=== PATIENT | male | born 2000 | race Caucasian/White ===

== ENCOUNTER 2025-01-02 13:03 | Outpatient (AMB) | payer OTHER, SELFPAY ==
--- NOTE | 2025-01-02 13:05 | A.OFFVIS_ITS ---
Vital Signs 01/02/25 13:17 Height 5 ft 3 in Weight 132 lb 4.438 oz BMI 23.4 BP 110/58 L Blood Pressure Location Rt brachial Position Sitting Pulse 90 Pulse Source Pulse Oximeter Pulse Oximetry (%) 100 Oxygen Delivery Method Room Air Intake Visit Reasons: URGENT NEED Severe dysphagia and weight loss Intake Note: NEW PATIENT for Severe dysphagia and unintentional weight loss. Chief Complaint; Pt c/o a foreign body sensation in the throat with any intake, excessive saliva production, GERD sx, dysphagia, epigastric pain which primarily affects the RUQ. [place] [facility] [place] Pt has attempted soft foods, smaller portions per fork, liquid nutrition (ensure) etc, without any relief. Pt PCP estimates that the pt is losing approx. 1-2 lbs per day. Pt reports weighing almost 140 1 week ago. Pt denies any additional sx or concerns at this time. Clay Burner Required: No Accompanied by: Mother Allergies No Known Allergies Allergy (Verified 12/27/24 14:33) HPI HPI URGENT NEED Severe dysphagia and weight loss: Details: 24-year-old male with no significant past medical history is here today for initial consultation. Patient is accompanied by his mom. Patient is experiencing severe abdominal pain in the epigastric area almost all the time. Patient reports that when he is trying to eat anything he is experiencing some discomfort and feels like the food just does not want to go down. No actual choking episode or trouble swallowing, however patient is feels like the food wants to come back up. Patient reports weight loss over 30 lb in the last month or so. Patient reports weighing 140 lb week ago and today his weight is 132 lb. Patient's mom admits that he is not eating as he is afraid of the pain. Patient has not smoked marijuana for over a month. Patient does not drink any alcohol. Patient is trying to drink protein shakes. Mom believes that they are not lactose free. Started by PCP on pantoprazole, however he feels like it is not helping at all. Patient actually reports to be feeling worse. PCP send patient for barium swallow that showed normal esophageal peristalsis and motility, decrease gastric emptying as well as moderate reflux. Patient's mother reports that when patient was 6-month-old he had severe reflux and had to be on PPI as he had projectile vomiting and had to sit and sleep upright for few months. Before this episode patient reports to be feeling well and having no symptoms. Patient admits that over a month ago or so he had several 3 extracted and had to be on heavy dose antibiotics. Since then he has not felt right. Patient admits to taking ibuprofen for pain around the same time. Patient denies any hemoptysis, denies any melena, hematochezia. Reports that he is mo ving his bowels without any issues. Admits to abdominal bloating, however not related to meals. Patient really has not had any normal meal in the past 30 days. Patient is very anxious and very worry about his health at this time. Multiple visits to ER and urgent care. PCP note as well as ER visit notes reviewed prior to patient's arrival. No acute findings. Patient denies any fever or chills. [facility] Medical History Anxiety and depression Idiopathic myocarditis Abnormal barium swallow Ender-Chowdary infection Family History Paternal Grandfather Lung cancer Social History Alcohol intake: current Comment: ~ 2 / year. Primarily holidays. Patient Tobacco Use Status: Never used Tobacco Substance Use Type: Marijuana Review of Systems Const Denies weight gain and Denies weight loss ENT Reports no additional complaints, Reports dysphagia and Denies odynophagia Card Reports no additional complaints Resp Reports no additional complaints GI Reports abdominal pain (Epigastric, RUQ), Denies belching, Denies melena, Reports bloating, Denies change in bowel habits, Reports dysphagia, Denies excessive flatus, Reports dyspepsia, Reports heartburn, Denies diarrhea, Denies loose stools, Reports nausea, Denies odynophagia and Denies vomiting Reports no additional complaints Musc Reports no additional complaints Neuro Reports no additional complaints Psych Reports no additional complaints Endo Reports no additional complaints Physical Exam Vital Signs: Last Vital Signs Pulse 90 01/02/25 13:17 BP 110/58 L 01/02/25 13:17 Pulse Ox 100 01/02/25 13:17 Oxygen Delivery Method Room Air 01/02/25 13:17 BMI result Body Mass Index 23.4 Const General: healthy appearing and no acute distress Nutritional Appearance: well nourished Orientation/consciousness: patient oriented x3 Resp Effort & Inspection: normal respiratory effort, able to speak in complete sente nces, no tracheal deviation and symmetric chest movement Auscultation: clear to auscultation bilaterally Cardio Rate: regular rate GI Inspection: Yes normal to inspection and No distended Palpation (GI): Soft to palpation, not firm, nontender and No hepatosplenomegaly present Auscultation: normal bowel sounds General: Yes no CVA tenderness Back/Spine/Pelvis Back: no CVA tenderness Skin General skin exam: elasticity normal, turgor normal and dry skin Neuro General: patient oriented x3 Psych Appearance: grossly normal Mental Status: mental status grossly normal Affect: Anxious affect present Assessment & Plan Assessment & Plan (1) Abnormal barium swallow: Code(s): R93.3 - Abnormal findings on diagnostic imaging of other parts of digestive tract (2) Dysphagia: Code(s): R13.10 - Dysphagia, unspecified Qualifiers: Dysphagia type: pharyngoesophageal phase Qualified Code(s): R13.14 - Dysphagia, pharyngoesophageal phase (3) Postprandial epigastric pain: Code(s): R10.13 - Epigastric pain (4) RUQ abdominal pain: Code(s): R10.11 - Right upper quadrant pain (5) Nausea & vomiting: Code(s): R11.2 - Nausea with vomiting, unspecified Qualifiers: Vomiting type: unspecified Qualified Code(s): R11.2 - Nausea with vomiting, unspecified (6) Delayed gastric emptying: Code(s): K30 - Functional dyspepsia (7) GERD (gastroesophageal reflux disease): Code(s): K21.9 - Gastro-esophageal reflux disease without esophagitis Qualifiers: Esophagitis presence: esophagitis presence not specified Qualified Code(s): K21.9 - Gastro-esophageal reflux disease without esophagitis Plan Will change treatment to Nexium 40 mg daily. Patient will take sucralfate twice a day in the afternoon and at bedtime. Patient will switch protein shakes to lactose free. Will check CBC, thyroid study, vitamin D, RAST allergen CMP, vitamin B12 and folate, will rule out celiac and chronic pancreatitis. Will call patient with results. Patient was encouraged to eat small meals and more often. Patient will be scheduled to go for upper endoscopy. Message sent to surgical schedulers to book the procedure. Patient will follow-up with us after the procedure. He is agreeable to this plan and verbalizes understanding of instructions. He was given the opportunity to ask questions and all questions answered. Thank you for allowing me to participate in his care Orders: Orders Complete Blood Count no Diff 01/02/25 K21.9 - Gastro-esophageal reflux disease without esophagitis TSH reflex Free T4 01/02/25 K59.00 - Constipation, unspecified Vitamin D 25-OH (D2 and D3) 01/02/25 E55.9 - Vitamin D deficiency, unspecified Rast Allergen 01/02/25 K21.9 - Gastro-esophageal reflux disease without esophagitis Comprehensive Met. Panel 01/02/25 K21.9 - Gastro-esophageal reflux disease without esophagitis Vitamin B12 and Folate 01/02/25 R19.7 - Diarrhea, unspecified Lipase 01/02/25 R10.9 - Unspecified abdominal pain Transglutaminase IgA 01/02/25 R10.9 - Unspecified abdominal pain Medications: New famotidine 40 mg PO BEDTIME 30 tabs 0RF K21.9 - Gastro-esophageal reflux disease without esophagitis esomeprazole magnesium (Nexium) 40 mg PO DAILY 30 caps 5RF K21.9 - Gastro- esophageal reflux disease without esophagitis sucralfate 1 g PO BID 60 tabs 1RF R19.7 - Diarrhea, unspecified Coding Level of Care Code New Pt Level 4 (71214) Diagnoses Abnormal barium swallow R93.3 Pharyngoesophageal dysphagia R13.14 Dysphagia type: pharyngoesophageal phase Postprandial epigastric pain R10.13 RUQ abdominal pain R10.11 Nausea and vomiting, unspecified vomiting type R11.2 Vomiting type: unspecified Delayed gastric emptying K30 Gastroesophageal reflux disease, unspecified whether esophagitis present K21.9 Esophagitis presence: esophagitis presence not specified Time Spent (min) 50 Comment 35 minutes spent with patient and additional 15 minutes spent reviewing his records
[2025-01-02 13:17] VITALS: BP 110/58; PULSE 90; O2SAT 100; BMI 23.4
--- OUTSIDE RECORDS SUMMARY | 2025-01-02 14:25 | XMS_ITS | Encounter Summary ---
Author Organization [facility] Address [address] [place] [id number] Phone Care Team Providers Care Mixer Wet Pour Name Role Phone Naveed Rao MD Primary Care Provider [phone] Encounter Details Date Type Department Care Team (Late st Contact Info) Description 08/18/2011 Conversion Encounter [facility] [place] [address] [place] [id number] Social History Tobacco Use Types Packs/Day Years Used Date Smoking Tobacco: Never Assessed Sex and Gender Information Value Date Recorded Sex Assigned at Not on file Legal Sex Male 6:32 PM EDT Gender Identity Not on file Sexual Orientation Straight 06/26/2020 11 :36 AM EDT documented as of this encounter Plan of Treatment Not on file documented as of this encounter Visit Diagnoses Not on filedocumented in this encounter Care Teams Mixer Wet Pour Relationship Specialty Start Date End Date Naveed Rao MD [address] [place] [address] PCP - General 04/05/18 11/29/23 documented as of this encounter
--- OUTSIDE RECORDS SUMMARY | 2025-01-02 14:25 | XMS_ITS | Encounter Summary ---
Author Organization [facility] Address [address] [place] [phone] Phone Care Team Providers Care Photoresist Printer Name Role Phone Unavailable Primary Care Provider Unavailabl e Reason for Visit * Reason Onset Date Comments henry to new pcp 12/20/2024 Encounter Details Date Type Department Care Team (Late st Contact Info) Description 12/20/2024 Telephone [facility] [place] [address] [place] [address] [phone] Savanna Walsh MD [address] [place] [address] [phone] henry to new pcp Social History Tobacco Use Types Packs/Day Years Used Date Smoking Tobacco: Passive Smo ke Exposure - Never Smoker Smokeless Tobacco: Never Comments:Never Smoker Alcohol Use Standard Drinks/Week Comments Yes 0 (1 standard drink = 0.6 oz pur e alcohol) rarely w holidays Hunger/Food Answer Date Recorded In the last 12 months, did y ou or your family ever eat less than you felt you should because there wasn't enough money for food? No 02/08/2022 Stable Housing Answer Date Recorded Are you worried that in the next 2 months you may not have stable housing? No 02/08/2022 Transportation Concerns Answer Date Rec orded In the last 12 months, have you or your family ever had to go without healthcare because you didn't have a way to get there? No 02/08/2022 Hazards in Home Answer Date Recorded Think about the place you li ve. Do you have problems with any of the following? Pests (mice or roaches), mold, no/not working smoke detectors, water leaks, no window guards. No 2021 Financing Utilities Answer Date Recorde d In the last 12 months, has t he electric, gas, oil, or water company threatened to shut off your services in your home? No 02/08/2022 Safety at Home Answer Date Recorded Are you or your family worried about feeling saf e in your home? No 02/08/2022 Outside Support Answer Date Recorded Do you feel that you need mo re support from other people or programs to help you care for yourself or your family? No 02/08/2022 Understanding Health Concerns Answer Da te Recorded Do you need help understandi ng your or your child's healthcare needs (diagnosis, medications, plan, etc.)? No 02/08/2022 Financing Health Concerns Answer Date R ecorded In the last 12 months, was t here a time when your child needed to see a doctor or get medications or supplies but could not because of cost? No 02/08/2022 Missing School or Work Answer Date Kevin rded Did you or your child miss s chool or work because of a health problem that could have been avoided? No 02/08/2022 Sex and Gender Information Value Date Recorded Sex Assigned at Not on file Legal Sex Male 6:32 PM EDT Gender Identity Not on file Sexual Orientation Straight 06/26/2020 11 :36 AM EDT documented as of this encounter Miscellaneous Notes * Telephone Encounter - Nan Sweeney MA - 12/27/2024 6:28 PM EST Sent [email or web address] message about fee * Telephone Encounter - Maddi Bustillos - 12/23/2024 9:52 AM EST Please collect fee. Approved for processing. * Telephone Encounter - Koki Wadsworth - 12/20/2024 5:30 PM EST Henry to new pcp received via fax, scanned to media and placed in bin. Routing to [place]. documented in this encounter Plan of Treatment Not on file documented as of this encounter Visit Diagnoses Not on filedocumented in this encounter
--- OUTSIDE RECORDS SUMMARY | 2025-01-02 14:26 | XMS_ITS | Clinical Summary ---
Author Organization [address] Address [address] [place] [address] Phone Care Team Providers Care Ticket Attendant Name Role Phone Naveed Rao MD Primary Care Provider [phone] Allergies No known active allergies Medications No known medications Immunizations Name Administration Dates Next Due Influenza, injectable, quad, with preservative (6-35 mos) 09/11/2020 Social History Tobacco Use Types Packs/Day Years Used Date Smoking Tobacco: Never Smokeless Tobacco: Never Sex and Gender Information Value Date Recorded Sex Assigned at Not on file Legal Sex Male 2:37 PM EST Gender Identity Not on file Sexual Orientation Not on file Last Filed Vital Signs Vital Sign Reading Time Taken Comments Blood Pressure 117/71 10/04/2020 5:04 PM EST Pulse 88 10/04/2020 5:04 PM EST Temperature 37 ??C (98.6 ??F) 10/04/2020 2:41 PM EST Respiratory Rate 16 10/04/2020 2:41 PM EST Oxygen Saturation 97% 10/04/2020 5:04 PM EST Inhaled Oxygen Concentration - - Weight 75.3 kg (166 lb) 10/04/2020 2:45 PM EST Height 160 cm (5' 3 ) 10/04/2020 2:45 PM EST Body Mass Index 29.41 10/04/2020 2:45 PM EST Plan of Treatment Health Maintenance Due Date Last Done Comments DTaP/TDaP Vaccines (2 - Td or Tdap) 07/31/2013 07/03/2013 HIV screening 2015 Hepatitis C screening 2020 Tetanus adult (Td q 10,TDAP once) 07/03/2023 07/03/2013 Influenza vaccine 06/28/2024 09/11/2020, , 08/05/2015, Additional history exists Covid-19 vaccine series (2023-25 season) 2024 RSV Discussion (1 - 1-dose 75+ series) 2077 Hepatitis B vaccine series Completed 12/07, 2002, 2002 HIB Vaccines Completed 08/08/2003, 08/30, 2002, Additional history exists IPV Vaccines Completed 03/11/2006, 07/29, 2002, Additional history exists MMR Vaccines Completed 04/13/2007, 05/09/2003 Varicella Vaccines Completed 04/13/2007, 05/09/2003 HPV vaccine series Completed 08/05/2015, 1 12/04/2013, 08/02/2014 Hepatitis A Vaccines Completed 08/05/2015, 08/02/20 14 Meningococcal Vaccine Completed 05/14/2019, 013 Pneumococcal Vaccine Aged Out No long er eligible based on patient's age to complete this topic Rotavirus Vaccines Aged Out No longer eligible based on patient's age to complete this topic Insurance [place] [employer] [employer] Care Teams Ticket Attendant Relationship Specialty Start Date End Date Naveed Rao MD PCP - General Pediatrics 10/04/20
--- OUTSIDE RECORDS SUMMARY | 2025-01-02 14:26 | XMS_ITS | Clinical Summary ---
Author Organization [facility] Address [address] [place] [address] Phone Care Team Providers Care Community Health Consultant Name Role Phone Unavailable Primary Care Provider Unavailabl e Allergies No known active allergies Medications No known medications Active Problems Problem Noted Date Diagnosed Date Adjustment disorder with depressed mood 03/26/20 Assessment & Plan (03/26/2023 7:00 PM EDT): He was reluctant to admit but after conversation it is clear he carries overwhelming grief at times that greatly effects his life to this day after his older brother Randolph in 2016. 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 He agreed to a few visits to start to address kt Meyer, referral made and we discussed the importance moving forward in his life despite intense grief. I will talk kt Betsy greatly. Situational anxiety 03/26/2023 Assessment & Plan (03/26/2023 7:02 PM EDT): Needle sticks, blood work etc declines today. Discussed important of getting Tetanus vaccine in the next few months at local pharmacy. Counseling for transition fr om pediatric to adult care provider 03/26/2023 Chest pain 12/22/2022 Assessment & Plan (12/22/2022 6:51 PM EST): Uncertain cause but NEEDS to go back to ER for revaluation and POSSIBLY readmission. ELEVATED troponin x 2 in hospital over the last 48 hours is concerning. ?Myocarditis--not certain. He did go back to ER and I spoke w him 3-4 hours after office visit by phone, he is stable. Vitamin D insufficiency 02/12/2022 Marijuana dependence 02/12/2022 Assessment & Plan (03/26/2023 7:01 PM EDT): Using less, discussed in detail Assessment & Plan (12/22/2022 6:52 PM EST): Will need to work on this in the future at follow up. Assessment & Plan (02/12/2022 10:16 AM EDT): Discussed in detail-- Self medicating his behavioral concerns Discussed short and shelter ramifications and need to cut back and hopefully quit. Sleep disorder 01/23/2020 Overweight 11/07/2017 Overview (03/26/2019): Overweight (278.02) Onset: 11/07/2017 Added by: Naveed Rao Assessment & Plan (02/12/2022 10:12 AM EDT): Weight Management Recommendations: Weight: 162 lb (73.5 kg) GOAL Weight:Strive for 150 or so, discussed Working on healthier lifestyle and a bit more exercise Eating: ?? Work on appropriate portions-- (a portion is about the size of your child's fist). ?? Measure out food according to what the serving size actually is ?? Work on healthy low calorie snacks, including prior to meals to decrease intake at mealtime, especially dinner. ?? Work on implementing low calorie spacer food between first and second helpings. ?? Strive for five servings of fruits and vegetables per day Beverages: ?? Eliminate soda intake. ?? Limit juice and other sweetened drinks such as sports drinks (Gatorade) and energy drinks ?? Drink more water - preferably 3-4 glasses per day Physical activity: ?? Try to get at least one hour of physical activity per day - this can be all at once or broken into chunks ?? Keep screen time (tv, LearnVestTube/NetSmavaix, social media, video games) to a combined total of 2 hours or less per day Assessment & Plan (06/26/2020 11:33 AM EDT): Weight Management Recommendations: Weight: 166 lb 3.6 oz (75.4 kg) GOAL Weight:155# Eating: ?? Work on appropriate portions-- (a portion is about the size of your child's fist). ?? Measure out food according to what the serving size actually is ?? Work on healthy low calorie snacks, including prior to meals to decrease intake at mealtime, especially dinner. ?? Work on implementing low calorie spacer food between first and second helpings. ?? Strive for five servings of fruits and vegetables per day Beverages: ?? Eliminate soda intake. ?? Limit juice and other sweetened drinks such as sports drinks (Gatorade) and energy drinks ?? Drink more water - preferably 3-4 glasses per day Physical activity: ?? Try to get at least one hour of physical activity per day - this can be all at once or broken into chunks ?? Keep screen time (tv, LearnVestTube/NetSmavaix, social media, video games) to a combined total of 2 hours or less per day Resolved Problems Problem Noted Date Diagnosed Date Resolved Date Anxiety 12/22/2022 03/26/2023 Assessment & Plan (12/22/2022 6:49 PM EST): Chronic component and situational which triggered leaving from hospital yesterday AMA. We discussed that we will need to work on thsi but he refuses therapy. I reccommended that when he feels very anxious in ER./hospital to let them know and that it is ok to allow the hospital to use medications to help you in this situation This will need to be further addressed once we are certain heart condition is rectified. Weight loss 12/22/2022 03/26/2023 Assessment & Plan (12/22/2022 6:51 PM EST): Uncertain cause, need further evaluation--ER has run many tests. Abnormal intentional weight loss 12/16/2020 02/12/2022 Overview (12/17/2020): 16 lbs in last 15 days with mild improvement in activity and diet. + urinary frequency with negative ua. Negative Covid testing. Lab work ordered: normal HbA1c and cbc, ua-only abnormal for protein. Assessment & Plan (12/16/2020 7:06 PM EST): 16 lbs in last 15 days with mild improvement in activity and diet. + urinary frequency with negative ua. Negative Covid testing. Lab work ordered Will go do fasting lab work at [facility] tomorrow and f/u with Dr. Rao in 1-2 weeks. Adjustment disorder with mix ed anxiety and depressed mood 11/02/2017 03/26/2023 Overview (03/26/2019): Acute grief reaction (309.0) Onset: 11/02/2017 Added by: Naveed Rao Assessment & Plan (02/12/2022 10:11 AM EDT): Ongoing sadness from his brother's in MVA a few years ago. Advised counseling again, he will think about it. Tried fluoxetine last year, he didn't really take to any significant degree. Anxiety from his brother's in MVA makes it hard for him to learn how to drive- fearful Assessment & Plan (06/26/2020 11:15 AM EDT): START medication and discussed and prescribed, take medication(s) as directed and don't stop medication without consulting your provider START FLUOXETINE, 1/2 tablet daily in AM x 1 week then 1 whole tablet thereafter. Advise restarting counseling with therapist in the next month or so. Recheck w Dr. Rao in 3 weeks- please make this appointment EVEN IF YOU DON'T FEEL LIKE IT : ) DISCUSSED IN DETAIL, medications, possible side effects, black box warning ADVISE regular exercise, good sleep patterns, avoid drugs and alcohol CONTINUE counseling as discussed if appropriate CALL us if concerns of worsening symptoms CRISIS NUMBER SUICIDE PREVENTION HOTLINE NUMBER Text Hotline [id number] Short stature 07/03/2013 06/26/2020 Overview (03/26/2019): Short stature (783.43) Onset: 07/03/2013 Added by: Naveed Rao Encounters Date Type Department Care Team Description 12/20/2024 Telephone Pediatric [facility] - [address] [place] [address] Savanna Walsh MD henry to new pcp from Last 3 Months Immunizations Name Administration Dates Next Due DTaP 5 04/13/2007, 3,2002,07/19,2002 H1N1 10/03/2009 HPV, Quadrivalent 08/05/2015,10/04/2014,08/02/20 14 Hep A, ped/adol 08/05/2015,08/02/2014 Hep B, ped/adol 2002,2002,2002 Hib (PRP-T) 08/08/2003, 2,2002,05/17 IPV 03/11/2006, 3,2002,05/17 Influenza, injectable, MDCK, preservative free, quadrivalent 10/27/2021 Influenza, injectable, quadr ivalent, preservative free 08/09/2016,08/05/2015 Influenza, injectable, triva lent, preservative free 10/15/2008,10/03/2007,10/04/2006,11/08,10/04/2005 Influenza, intranasal, quadrivalent 10/04/2014 Influenza, intranasal, trivalent 08/25/2011 MMR 04/13/2007,05/09/2003 Meningococcal B Trumenba 01/10/2020,05/14/2019 Meningococcal Conj (Menactra) MCV4P 05/14/2019,0 07/03/2013 Pneumococcal Conjugate 08/08/2003,2001,2002,05/17 Tdap 07/03/2013 Varicella 04/13/2007,05/09/2003 Family History Medical History Relation Name Comments Diabetes Maternal Grandmother Heart disease (Premature) Maternal Grandmother Relation Name Status Comments Maternal Grandmother Social History Tobacco Use Types Packs/Day Years [...] t he electric, gas, oil, or water [employer] threatened to shut off your services in [...] Orientation Straight 06/26/2020 11 :36 AM EDT Last Filed Vital Signs Vital Sign Reading Time Taken Comments Blood Pressure 112/64 03/23/2023 2:06 PM EDT Pulse 82 03/23/2023 2:06 PM EDT Temperature 36.4 ??C (97.6 ??F) 03/23/2023 2:06 PM ED T Respiratory Rate 20 01/26/2023 1:19 PM EST Oxygen Saturation 98% 03/23/2023 2:06 PM EDT Inhaled Oxygen Concentration - - Weight 73.3 kg (161 lb 9.6 oz) 03/23/2023 2:06 P M EDT Height 157.7 cm (5' 2.09 ) 03/23/2023 2:06 PM ED T Body Mass Index 29.47 03/23/2023 2:06 PM EDT Plan of Treatment Health Maintenance Due Date Last Done Comments DTaP,Tdap,and Td Vaccines (7 - Td or Tdap) 07/03/2023 07/03/2013, 04/13/2007, 08/08/2003, Additional history exists Influenza Vaccines (#1) 2024 11/04/20, 10/27/2021, 08/09/2016, Additional history exists COVID-19 Vaccine (2023-2 5 season) 2024 01/11/2022, 01/23/2021, 12/26/2020 Hepatitis B Vaccines Completed 2002, 2002, 2002 HIB Vaccines Completed 08/08/2003, 08/30, 2002, Additional history exists Pneumococcal Vaccine Completed 08/08/2003, 2002, 2002, Additional history exists IPV Vaccines Completed 03/11/2006, 07/29, 2002, Additional history exists MMR Vaccines Completed 04/13/2007, 05/09/2003 Varicella Vaccines Completed 04/13/2007, 05/09/2003 HPV Vaccines Completed 08/05/2015, 11/0 05/2014, 08/02/2014 Hepatitis A Vaccines Completed 08/05/2015, 08/02/20 14 Meningococcal Vaccine Completed 05/14/2019, 013 Men B Vaccine Completed 01/10/2020, 05/14/2019 Insurance [facility] [place] [facility] [facility] Address: [address] [address] [place] [address] [employer]
== END 2025-01-02 15:24 | disposition home or self-care (01) ==
PROVIDERS: PCP Nurse Practitioner Family; Visit Provider Nurse Practitioner Family
DX: R93.3 Abnormal findings on diagnostic imaging of other parts of digestive tract (principal); R13.14 Dysphagia, pharyngoesophageal phase; R11.2 Nausea with vomiting, unspecified; K30 Functional dyspepsia; K21.9 Gastro-esophageal reflux disease without esophagitis
CPT/HCPCS: 99204

== ENCOUNTER 2025-01-02 13:03 | Outpatient (REF) | payer OTHER, SELFPAY ==
[2025-01-02 15:14] LABS: Hematocrit 42.7 % (42.0-52.0); Hemoglobin 15.5 g/dl (14.0-18.0); Mean Corpuscular HGB Conc 36.3 g/dl (31.0-36.0); Mean Corpuscular Hemoglobin 30.4 pg (27.0-33.0); Mean Corpuscular Volume 83.7 fL (80.0-98.0); Mean Platelet Volume 9.9 fL (9.4-12.4); Platelet Count 207 X10*3/uL (160-400); Red Cell Distribution Width 13.4 % (11.0-16.0); White Blood Count 4.4 X10*3/uL (4.8-10.8)
--- OUTSIDE RECORDS SUMMARY | 2025-01-02 15:47 | XMS_ITS | Clinical Summary ---
Author Organization [address] [place] [address] [place] [address] Phone Care Team Providers Care Rubber Engraver Name Role Phone Naveed Rao MD Primary Care Provider [phone] Allergies No known active allergies Medications No [...] [place] Care Teams Rubber Engraver Relationship Specialty Start Date End Date Naveed Rao MD PCP - General Pediatrics 10/04/20
--- OUTSIDE RECORDS SUMMARY | 2025-01-02 15:47 | XMS_ITS | Clinical Summary ---
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 Keep screen time (tv, OvulineTube/NetOmmvenix, social media, video games) to a combined [...] into chunks ?? Keep screen time (tv, OvulineTube/NetOmmvenix, social media, video games) to a combined [...] Will go do fasting lab work at [facility] tomorrow and f/u with Dr. Rao [...] NUMBER SUICIDE PREVENTION HOTLINE NUMBER Text Hotline [phone] Short stature 07/03/2013 06/26/2020 Overview (03/26/2019): Short stature (783.43) Onset: 07/03/2013 Added by: Naveed Rao Encounters Date Type Department Care Team Description 12/20/2024 Telephone Pediatric And Adolescent Medicine - [address] [place] [address] Savanna Walsh MD henry to new pcp [...] t he electric, gas, oil, or water [employer] threatened to shut off your services in [...] Men B Vaccine Completed 01/10/2020, 05/14/2019 Insurance [facility] Address: [address] [address] [place] [address] [employer]
--- OUTSIDE RECORDS SUMMARY | 2025-01-02 15:47 | XMS_ITS | Encounter Summary ---
Author Organization [facility] Address [address] [place] [phone] Phone Care Team Providers Care Programming Development Project Manager Name Role Phone Unavailable Primary Care Provider Unavailabl e Reason for Visit * Reason Onset Date Comments henry to new pcp 12/20/2024 Encounter Details Date Type Department Care Team (Late st Contact Info) Description 12/20/2024 Telephone [facility] - [place] [address] [place] [phone] Savanna Walsh MD [address] [place] [address] [phone] henry to new pcp Social History Tobacco [...] [place] - 12/27/2024 6:28 PM EST Sent wywy message about fee * Telephone Encounter - [...]
--- OUTSIDE RECORDS SUMMARY | 2025-01-02 15:47 | XMS_ITS | Encounter Summary ---
Author Organization [facility] Address [address] [place] [address] Phone Care Team Providers Care Addiction Specialist Name Role Phone Naveed Rao MD Primary Care Provider [phone] Encounter Details Date Type Department Care Team (Late st Contact Info) Description 08/18/2011 Conversion Encounter [facility] - [place] [address] [place] [phone] Social History Tobacco Use Types Packs/Day Years [...] on filedocumented in this encounter Care Teams Addiction Specialist Relationship Specialty Start Date End Date Naveed Rao MD [address] [place] [address] PCP - General 04/05/18 11/29/23 documented as of this encounter
[2025-01-02 16:09] LABS: Alanine Aminotransferase 28 U/L (0-40); Albumin Level 4.8 g/dL (3.5-5.0); Anion Gap 20 (12-20); Aspartate Amino Transferase 33 U/L (5-37); Bilirubin Total 1.5 mg/dL (0.0-1.0); Blood Urea Nitrogen 12 mg/dL (9-16); Calcium 10.2 mg/dL (8.4-10.2); Carbon Dioxide 22 mmol/L (22-29); Chloride 99 mmol/L (96-108); Estimated Glomerular Filt Rate > 60; Glucose Random 58 mg/dL (60-115); Lipase 19 U/L (8-78); Sodium 137 mmol/L (135-145); TSH reflex Free T4 0.75 uIU/mL (0.32-4.0)
[2025-01-02 16:17] LABS: Folate 9.1 ng/mL (> or = 4.0); Vitamin B12 749 pg/mL (200-900)
[2025-01-02 16:31] LABS: Alkaline Phosphatase 63 U/L (39-117)
[2025-01-04 14:53] LABS: Transglutaminase IgA <1.0 U/mL
[2025-01-06 17:47] LABS: Vitamin D 25-OH, D2 <4 ng/mL; Vitamin D 25-OH, D3 6 ng/mL; Vitamin D 25-OH, Total 6 ng/mL (30-100)
== END 2025-01-02 13:04 | disposition home or self-care (01) ==
LOC: HO.LAB 13:03
PROVIDERS: PCP Nurse Practitioner Family; Visit Provider Nurse Practitioner Family
DX: K21.9 Gastro-esophageal reflux disease without esophagitis (principal); R63.4 Abnormal weight loss; Z68.23 Body mass index [BMI] 23.0-23.9, adult; R93.3 Abnormal findings on diagnostic imaging of other parts of digestive tract; R13.14 Dysphagia, pharyngoesophageal phase; R10.11 Right upper quadrant pain; R11.2 Nausea with vomiting, unspecified; K30 Functional dyspepsia; E55.9 Vitamin D deficiency, unspecified; K59.00 Constipation, unspecified; R19.7 Diarrhea, unspecified
CPT/HCPCS: 36415; 80053; 82306; 82607; 82746; 83690; 84443; 85027; 86003; 86364

== ENCOUNTER 2025-01-17 08:22 | Day surgery (SDC) | payer OTHER, SELFPAY ==
[2025-01-17 09:04] VITALS: BMI 22.6
[2025-01-17] MEDS: Lactated Ringers 1,000 ML 80 ML IVCONT (09:17)
--- NOTE | 2025-01-17 09:49 | MHC.SHP ---
Pre-Procedural Eval Section A - 24 Hr Update-Section A only Date of Service: 01/17/25 The patient is an INPATIENT: No The patient has been examined within 24 hours of the surgical procedure. The History & Physical has been completed within 30 days and I have reviewed it.: Yes Section B - Complete if H&P > 30 days Chief Complaint: Dysphagia, unspecified Allergies: Allergies Allergy/AdvReac Type Severity Reaction Status Date / Time No Known Allergies Allergy Verified 01/17/25 09:40 Plan Diagnosis/Plan: Unchanged I have reviewed the history and physical and performed a pertinent physical examination on my patient. No changes have occurred unless specified. Time Spent With Patient Time: Total time managing care of this patient today ____ minutes.
[2025-01-17 10:09] VITALS: BP 123/71; PULSE 67; RESP 18; TEMP 36.7; O2SAT 100
--- NOTE | 2025-01-17 10:48 | P.CONAN_ITS ---
HPI - Anesthesia Eval Consult details Narrative: for upper endo PMFSH Past Medical History Medical History Anxiety and depression Idiopathic myocarditis Abnormal barium swallow Ender-Chowdary infection Family History Family History Paternal Grandfather Lung cancer Family history of problems with anesthesia: No Surgical History Surgical History Hx of wisdom tooth extraction History of Problems with Anesthesia: No Social History Social History Are you a primary early breastfeeding care specialist to a significant other at home: No Do you presently have visiting nurse or other home services: No Alcohol intake: current Comment: ~ 2 / year. Primarily holidays. Patient Tobacco Use Status: Never used Tobacco Substance Use Type: Marijuana Substance Use Frequency: Socially Have you been hit, kicked, punched, or otherwise hurt by someone within the past year? If so, by whom?: No Are you DNR?: No Advance Directives: No Advance Directives Information Provided: Yes Recently lost weight without trying: Yes How much weight loss: 14-23 pounds Eating poorly because of decreased appetite: Yes Nutrition screen score: 5 Poor oral hygiene: No Meds Allergies Allergy/AdvReac Type Severity Reaction Status Date / Time No Known Allergies Allergy Verified 01/17/25 09:40 Active Medications: Current Medications Lactated Ringer's (Lr) 1,000 mls @ 80 mls/hr IVCONT .[id number] [facility] Last Admin: 01/17/25 09:17 Dose: 80 mls/hr Home Medications ?Medication ?Instructions ?Recorded ?Confirmed ?Last Taken ?Type pantoprazole 40 mg tablet,delayed 40 mg PO DAILY 01/17/25 01/17/25 01/17/25 History release Exam Height,Weight and Vital Signs: Height 5 ft 3 in Weight 58 kg Last Vital Signs Temp 98.0 F 01/17/25 10:09 Pulse 67 01/17/25 10:09 Resp 18 01/17/25 10:09 BP 123/71 01/17/25 10:09 Pulse Ox 100 01/17/25 10:09 O2 Del Method Room Air 01/17/25 10:09 Airway Mallampati Class: II TM Dist: >3cm Neck ROM: Full Heart: rrr Lungs: cta Assessment and Plan Assessment Anesthesia Assessment: Anesthesia Plan Discussed and Chart Reviewed Final Anesthetic Review Family History of Problems with Anesthesia: No History of Problems with Anesthesia: No NPO: Yes ASA Class: II Final Preanesthetic Review: No Changes in Pt Med Stat, Meds/Allgs Chart Reviewed, Consent Obtained/Reviewed and Anes Risks/Benef Reviewed Patient Risk: Intermediate Procedure Risk: Low Anesthetic Plan Anesthetic Plan: MAC: Disposition: Standard PACU
--- NOTE | 2025-01-17 11:16 | P.OP_ITS ---
Operative Note Operative Note Date of Service: 01/17/25 Narrative: Procedure: Esophagogastroduodenoscopy Endoscopist: Sally Bruno MD Indication: Dysphagia, reflux Anesthesia Provider: Dr Kaitlynn Shook Anesthesia Type: MAC ?? EGD Procedure:?? The procedure, indications, preparation and potential complications were reviewed with the patient, who indicated understanding and gave written informed consent to proceed. A physical exam was performed. The endoscope was introduced through the mouth, and advanced to the second part of duodenum. The mucosa was carefully examined on slow withdrawal of the endoscope. The patient tolerated the procedure well. There were no immediate complications.? ? EGD Findings:? * Esophagus:? Normal mucosa noted in the entire esophagus. The Z line was at 39 and irregular to 38 cm. Cold forceps biopsies were taken from the GE junctional Barretts esophagus. Middle and lower esophagus forceps biopsies were obtained to rule out eosinophilic esophagitis. * Stomach:? A few erosions with erythema and scant heme were noted in the antrum, as well as body. Retroflexion was performed in the cardia. Random cold forceps gastric biopsies were taken to rule out H Pylori infection. * Duodenum:? Normal mucosa was noted in the whole of the examined duodenum. Cold forceps biopsies were taken from duodenal bulb and second portion of the duodenum to rule out celiac sprue. Additional intervention: Soft tipped Savary wire was introduced through the biopsy channel of the gastroscope and advanced to the antrum. ?The gastroscope was then backed out. ?Savary Zoila bougie was advanced over the guidewire and the esophagus was dilated to 20 with slight resistance felt. ?On relook, small superficial tear was noted at 20 cm confirming successful dilation. ? ? EGD Impressions:? * Cricopharyngeal stenosis (dilation) * Irregular Z line (biopsy) * Gastritis (biopsy) * Normal duodenum (biopsy) ?? Recommendations:?? * Follow biopsy results. Our office will call or send a letter with results within 7-10 days. * If biopsies confirm Dunn's esophagus, consider referral to for foregut surgery for consideration of anti-reflux surgery. * Continue PPI therapy. * If H pylori +, patient will be prescribed eradication therapy followed by test of cure. * Avoid NSAIDs.
[2025-01-17 11:24] VITALS: BP 93/50; PULSE 65; RESP 14; TEMP 36.4; O2SAT 99
[2025-01-17 11:39] VITALS: BP 95/54; PULSE 61; RESP 16; O2SAT 97
[2025-01-17 11:54] VITALS: BP 102/74; PULSE 72; RESP 20; TEMP 36.2; O2SAT 100
== END 2025-01-17 12:31 | disposition home or self-care (01) ==
PROVIDERS: PCP Nurse Practitioner Family; Visit Provider Internal Medicine
PROC: 0DJ08ZZ Inspection of Upper Intestinal Tract, Via Natural or Artificial Opening Endoscopic (ICD-10-PCS; CPT 43235; principal; 2025-01-17 10:50)
DX: K29.70 Gastritis, unspecified, without bleeding (principal); K22.9 Disease of esophagus, unspecified; J39.2 Other diseases of pharynx; K21.9 Gastro-esophageal reflux disease without esophagitis; F12.90 Cannabis use, unspecified, uncomplicated
CPT/HCPCS: 43248; 43239; 88305; 88313; 88342; C1769; J2003; J2250; J2704

== ENCOUNTER → 2025-01-17 08:22 | Outpatient (BNV) | payer OTHER, SELFPAY | PROVIDERS: PCP Nurse Practitioner Family; Visit Provider Internal Medicine | DX: R13.10 Dysphagia, unspecified (principal); K21.9 Gastro-esophageal reflux disease without esophagitis; J39.2 Other diseases of pharynx; K29.70 Gastritis, unspecified, without bleeding | CPT/HCPCS: 43239; 43248 ==

== ENCOUNTER 2025-02-15 10:40 | Outpatient (AMB) | payer OTHER, SELFPAY ==
--- NOTE | 2025-02-15 10:43 | A.OFFVIS_ITS ---
Vital Signs 02/15/25 10:48 Height 5 ft 3 in Weight 140 lb 10.479 oz BMI 24.9 BP 100/52 L Blood Pressure Location Rt brachial Position Sitting Pulse 78 Pulse Source Pulse Oximeter Pulse Oximetry (%) 98 Oxygen Delivery Method Room Air Intake Visit Reasons: s/p EGD + 3 mos GERD FUV Intake Note: ESTABLISHED PATIENT for s/p FUV, GERD + Dysphagia mgmt. Chief Complaint; C/O mild persistence with reflux + dysphagia, however improved. Pt also reports mild lack of appetite. However, overall improvement, diet remains unchanged, no signs of fecal abn at this time. Podiatric Technician Required: No Accompanied by: Parent Allergies No Known Allergies Allergy (Verified 01/17/25 09:40) HPI HPI s/p EGD + 3 mos GERD FUV: Details: LAST VISIT Abnormal barium swallow Dysphagia Postprandial epigastric pain RUQ abdominal pain Nausea & vomiting Delayed gastric emptying GERD (gastroesophageal reflux disease) Plan Will change treatment to Nexium 40 mg daily. Patient will take sucralfate twice a day in the afternoon and at bedtime. Patient will switch protein shakes to lactose free. Will check CBC, thyroid study, vitamin D, RAST allergen CMP, vitamin B12 and folate, will rule out celiac and chronic pancreatitis. Will call patient with results. Patient was encouraged to eat small meals and more often. Patient will be scheduled to go for upper endoscopy. Message sent to surgical jody arias to book the procedure. Patient will follow-up with us after the procedure. He is agreeable to this plan and verbalizes understanding of instructions. He was given the opportunity to ask questions and all questions answered. ? Thank you for allowing me to participate in his care Orders Orders Complete Blood Count no Diff 01/02/25 K21.9 TSH reflex Free T4 01/02/25 K59.00 Vitamin D 25-OH (D2 and D3) 01/02/25 E55.9 Rast Allergen 01/02/25 K21.9 Comprehensive Met. Panel 01/02/25 K21.9 Vitamin B12 and Folate 01/02/25 R19.7 Lipase 01/02/25 R10.9 Transglutaminase IgA 01/02/25 R10.9 Medications New famotidine 40 mg PO BEDTIME 30 tabs 0RF K21.9 esomeprazole magnesium (Nexium) 40 mg PO DAILY 30 caps 5RF K21.9 sucralfate 1 g PO BID 60 tabs 1RF R19.7 ENDOSCOPY EGD Findings:? * Esophagus:? Normal mucosa noted in the entire esophagus. The Z line was at 39 and irregular to 38 cm. Cold forceps biopsies were taken from the GE junctional Barretts esophagus. Middle and lower esophagus forceps biopsies were obtained to rule out eosinophilic esophagitis. * Stomach:? A few erosions with erythema and scant heme were noted in the antrum, as well as body. Retroflexion was performed in the cardia. Random cold forceps gastric biopsies were taken to rule out H Pylori infection. * Duodenum:? Normal mucosa was noted in the whole of the examined duodenum. Cold forceps biopsies were taken from duodenal bulb and second portion of the duodenum to rule out celiac sprue. Additional intervention: Soft tipped Savary wire was introduced through the biopsy channel of the gastroscope and advanced to the antrum. ?The gastroscope was then backed out. ?Savary Zoila bougie was advanced over the guidewire and the esophagus was dilated to 20 with slight resistance felt. ?On relook, small superficial tear was noted at 20 cm confirming successful dilation. ? ? EGD Impressions:? * Cricopharyngeal stenosis (dilation) * Irregular Z line (biopsy) * Gastritis (biopsy) * Normal duodenum (biopsy)?? Recommendations:?? * Follow biopsy results. Our office will call or send a letter with results within 7-10 days. * If biopsies confirm Dunn's esophagus, consider referral to for foregut surgery for consideration of anti-reflux surgery. * Continue PPI therapy. * If H pylori +, patient will be prescribed eradication therapy followed by test of cure. * Avoid NSAIDs. PATHOLOGY RESULTS Diagnosis A. Duodenum, biopsy: Duodenal mucosa within normal limits. B. Stomach, random, biopsy: Antral-type and oxyntic mucosa with mild chronic inactive inflammation and focal erosion and intestinal metaplasia in the antrum; negative for dysplasia; no Helicobacter organisms seen. C. Esophagus, lower, biopsy: - Cardiofundic-type mucosa with mild chronic inactive inflammation; no intestinal metaplasia seen. - Squamous epithelium within normal limits. D. Esophagus, mid, biopsy: Squamous epithelium within normal limits; no inflammation seen. E. GE junction, biopsy: - Cardiac-type mucosa with moderate chronic active inflammation; no intestinal metaplasia seen. - Squamous epithelium within normal limits. TODAY'S VISIT Patient is here today for follow-up. Patient accompanied by mom. Patient reports that since last visit he has been doing well. Upper endoscopy done, ruled out Dunn's and H pylori. Mild gastritis. Patient reports that he is taking pantoprazole in the morning and sucralfate at bedtime. States that his symptoms are suppressed for the most part. Patient has been eating simple meals and avoiding dietary triggers. Patient gained 8 lb since last visit. Patient's mom reports that patient kind of eats the same thing as he is afraid to try something new so he does not the symptoms. Still has symptoms of increased saliva at times. Denies dyspepsia, dysphagia or odynophagia. Patient reports normal bowel movements. We have ruled out chronic pancreatitis, celiac. Patient had very low vitamin-D level and we started him on high dose vitamin-D weekly. Patient reports that he has been taking that in feeling better. Patient in his mom reports that he feels like he has little bit more energy. [facility] Medical History Anxiety and depression Idiopathic myocarditis Abnormal barium swallow Ender-Chowdary infection Surgical History History of endoscopy Hx of wisdom tooth extraction Family History Paternal Grandfather Lung cancer Social History Are you a primary foster care worker to a significant other at home: No Do you presently have visiting nurse or other home services: No Alcohol intake: current Comment: ~ 2 / year. Primarily holidays. Patient Tobacco Use Status: Never used Tobacco Substance Use Type: Marijuana Review of Systems Const Denies weight gain and Denies weight loss ENT Reports no additional complaints, Denies dysphagia and Denies odynophagia Card Reports no additional complaints Resp Reports no additional complaints GI Denies abdominal pain, Denies belching, Denies melena, Denies bloating, Denies change in bowel habits, Denies dysphagia, Denies excessive flatus, Denies dyspepsia, Denies heartburn, Denies diarrhea, Denies loose stools, Denies nausea, Denies odynophagia and Denies vomiting Reports no additional complaints Musc Reports no additional complaints Neuro Reports no additional complaints Psych Reports no additional complaints Endo Reports no additional complaints Physical Exam Vital Signs: Last Vital Signs Pulse 78 02/15/25 10:48 BP 100/52 L 02/15/25 10:48 Pulse Ox 98 02/15/25 10:48 Oxygen Delivery Method Room Air 02/15/25 10:48 BMI result Body Mass Index 24.9 Const General: healthy appearing and no acute distress Nutritional Appearance: well nourished Orientation/consciousness: patient oriented x3 Resp Effort & Inspection: normal respiratory effort, able to speak in complete sentences, no tracheal deviation and symmetric chest movement Auscultation: clear to auscultation bilaterally Cardio Rate: regular rate GI Inspection: Yes normal to inspection and No distended Palpation (GI): Soft to palpation, not firm, nontender and No hepatosplenomegaly present Auscultation: normal bowel sounds General: Yes no CVA tenderness Back/Spine/Pelvis Back: no CVA tenderness Skin General skin exam: elasticity normal, turgor normal and dry skin Neuro General: patient oriented x3 Psych Appearance: grossly normal Mental Status: mental status grossly normal Affect: Anxious affect present Results Reviewed Results Reviewed: Laboratory Tests 01/02/25 15:01 AST 33 ALT 28 Lipase 19 Vitamin B12 749 25-OH Vitamin D Total 6 L Folate 9.1 TSH 0.75 Tiss Transglutamin IgA <1.0 Assessment & Plan Assessment & Plan (1) Abnormal barium swallow: Code(s): R93.3 - Abnormal findings on diagnostic imaging of other parts of digestive tract (2) Dysphagia: Code(s): R13.10 - Dysphagia, unspecified Qualifiers: Dysphagia type: esophageal phase Qualified Code(s): R13.19 - Other dysphagia (3) Postprandial epigastric pain: Code(s): R10.13 - Epigastric pain (4) RUQ abdominal pain: Code(s): R10.11 - Right upper quadrant pain (5) Delayed gastric emptying: Code(s): K30 - Functional dyspepsia (6) GERD (gastroesophageal reflux disease): Code(s): K21.9 - Gastro-esophageal reflux disease without esophagitis Qualifiers: Esophagitis presence: without esophagitis Qualified Code(s): K21.9 - G shaka-esophageal reflux disease without esophagitis Plan Continue pantoprazole in the morning and sucralfate bedtime. Avoid dietary triggers and late night snacking. Staying upright for minimum 3 hours after meals stressed with patient. Patient was encouraged to try to introduce more food. Encouraged him to stay away from tomato sauce, pizza. Avoid lactose. Follow-up in 6 months, sooner on as needed basis. Patient is agreeable this plan and verbalizes understanding of instructions. He was given the opportunity ask questions and all questions answered. Thank you for allowing me to participate in his care Coding Level of Care Code Est Pt Level 4 (26025) Complex EM visit Add On G2211 Diagnoses Abnormal barium swallow R93.3 Esophageal dysphagia R13.19 Dysphagia type: esophageal phase Postprandial epigastric pain R10.13 RUQ abdominal pain R10.11 Delayed gastric emptying K30 Gastroesophageal reflux disease without esophagitis K21.9 Esophagitis presence: without esophagitis Time Spent (min) 35 Comment 20 minutes spent with patient and additional 15 minute spent reviewing records
[2025-02-15 10:48] VITALS: BP 100/52; PULSE 78; O2SAT 98; BMI 24.9
== END 2025-02-15 11:11 | disposition home or self-care (01) ==
LOC: HO.HGI 10:40
PROVIDERS: PCP Nurse Practitioner Family; Visit Provider Nurse Practitioner Family
DX: R93.3 Abnormal findings on diagnostic imaging of other parts of digestive tract (principal); R13.19 Other dysphagia; K30 Functional dyspepsia; K21.9 Gastro-esophageal reflux disease without esophagitis
CPT/HCPCS: 99214

== ENCOUNTER → 2025-02-15 10:40 | Outpatient (BNVA) | payer OTHER, SELFPAY | PROVIDERS: PCP Nurse Practitioner Family; Visit Provider Nurse Practitioner Family ==